=== PATIENT | male | born 1990 | race Caucasian/White ===

== ENCOUNTER → 2024-01-22 07:56 | Outpatient (CLI) | payer OTHER, SELFPAY ==
--- NOTE | 2024-01-22 | DI.MRI.S_ITS ---
PROCEDURE: MR CERVICAL SPINE WO CON INDICATIONS: Radiculopathy, cervical region TECHNIQUE: Noncontrast sagittal T1 spin echo and T2 fast spin echo, sagittal STIR, foraminal oblique sagittal T2 fast spin echo, and axial gradient echo or T2 fast spin echo through the cervical spine. COMPARISON: None. FINDINGS: Image quality: Excellent. Alignment and Curvature: There is overall straightening of the normal cervical lordosis. No focal AP alignment abnormality is seen. Bone Marrow: Marrow demonstrates normal overall signal. Spinal Cord: Visualized spinal cord has normal size and signal. No cerebellar tonsillar herniation. Paraspinous Soft Tissues: No paravertebral masses. Prevertebral soft tissues are normal in thickness. C2-C3: Normal appearance. C3-C4: Normal appearance. C4-C5: The disc height and disk signal are well-preserved. A mild degree of generalized disc osteophyte complex is seen. There is a mild central/left disc osteophyte protrusion, as on series 4, image 25. Mild facet joint hypertrophy is seen. No neural foraminal narrowing is seen. Mild to moderate central canal narrowing is seen. C5-C6: Mild loss of disc height is seen. Loss of disc signal is seen. Mild to moderate disc osteophyte complex is seen, which is slightly eccentric to the right. Minimal bilateral facet hypertrophy can be seen. There is at least moderate right-sided and moderate left-sided neural foraminal narrowing. Mild central canal narrowing is seen. C6-C7: The disc height and disk signal are well-preserved. Mild disc osteophyte complex is seen, which is eccentric to the left. There is a degree of compression seen upon the exiting nerve roots. Minimal facet hypertrophy is seen. There is mild to moderate bilateral neural foraminal narrowing seen. No significant central canal narrowing is seen. C7-T1: Normal appearance. IMPRESSION: Focal lower cervical spine degenerative changes are seen. Straightening of the normal cervical lordosis is seen, which is commonly observed in patients with muscular spasm. Dictated by: Cruz Bates M.D. on 01/22/2024 at 12:08 Approved by: Cruz Bates M.D. on 01/22/2024 at 12:11
== END ==
LOC: MRI 07:57
PROVIDERS: Family Provider Radiology Diagnostic Radiology; PCP Radiology Diagnostic Radiology
DX: M47.22 Other spondylosis with radiculopathy, cervical region (principal)
CPT/HCPCS: 72141